=== PATIENT | female | born 1960 | race Caucasian/White ===

== ENCOUNTER → 2017-01-25 09:09 | Outpatient (CLI) | payer BC ==
[2016-07-25 11:06] VITALS: BMI 30.6
[~2017-01-25 09:09] MED LIST: ALBUTEROL2.5 MG/3 M UPD; COLACE100 MG PO; PEPCID20 MG PO; VIBRAMYCIN 100100 MG PO
== END | disposition home or self-care (01) ==
LOC: D.RT 12-25 13:00
DX: J45.909 Unspecified asthma, uncomplicated (principal); J44.9 Chronic obstructive pulmonary disease, unspecified

== ENCOUNTER 2019-01-21 11:46 | Observation (INO) | payer OTHER ==
[~2019-01-21] VITALS: Ht 156.2 cm; Wt 63.5 kg
[2019-01-21] VITALS (7 sets, daily range): BP systolic 103–149; BP diastolic 45–78
[2019-01-21] MEDS ORDERED: VALIUM 2 MG TAB2 MG PO (11:52)
[2019-01-21] MEDS ORDERED: PROZAC40 MG PO (11:53)
[2019-01-21] MEDS ORDERED: TOUJEO (11:53)
[2019-01-21] MEDS ORDERED: NOVOLOG100 UNIT/1 SC (11:53)
[2019-01-21 12:42] LABS: BASOPHILS 0.3 % (0-2); EOSINOPHILS 2.3 % (0-7); HEMATOCRIT 40.7 % (36.0-48.0); HEMOGLOBIN 13.7 g/dL (12-16); IMMATURE GRANULOCYTES 0.4 % (0-5); MCH 30.1 pg (26.0-34.0); MCHC 33.7 g/dL (31.0-37.0); MCV 89.5 fL (80.0-100.0); MEAN PLATELET VOLUME 12.1 fL (7.4-10.4); MONOCYTES 6.6 % (2-11); NEUTROPHILS 57.4 % (40-80); RBC 4.55 10x6/uL (4.00-5.40); RDW 13.1 % (11.5-14.5); WBC 7.3 10x3/uL (4.8-10.8)
[2019-01-21 12:51] LABS: PLATELET COUNT 193 10x3/uL (130-400)
[2019-01-21 12:54] LABS: INR 1.07 (0.85-1.17); PROTIME 13.4 SECONDS (11.6-15.0)
[2019-01-21 13:00] LABS: UDS - AMPHET NEGATIVE QUAL (NEGATIVE); UDS - BARB NEGATIVE QUAL (NEGATIVE); UDS - BENZO NEGATIVE QUAL (NEGATIVE); UDS - COCAINE NEGATIVE QUAL (NEGATIVE); UDS - OPIATE NEGATIVE QUAL (NEGATIVE); UDS - PCP NEGATIVE QUAL (NEGATIVE); UDS - THC NEGATIVE QUAL (NEGATIVE)
[2019-01-21 13:11] LABS: APPEARANCE CLEAR (CLEAR); BACTERIA FEW /hpf (NONE SEEN); BILIRUBIN NEGATIVE (NEGATIVE); COLOR YELLOW (YELLOW); EPITHELIAL CELLS OCC /hpf (0-5); GLUCOSE 1000 mg/dL (NEGATIVE); KETONE NEGATIVE (NEGATIVE); MUCUS <1+ /lpf (NONE SEEN); NITRITE NEGATIVE (NEGATIVE); PROTEIN NEGATIVE (NEGATIVE); SPECIFIC GRAVITY 1.015 (1.005-1.020); UROBILINOGEN NORMAL (NORMAL)
[2019-01-21 13:29] LABS: ALBUMIN 3.2 g/dL (3.4-5.0); ALKALINE PHOSPHATASE 97 U/L (46-116); ALT (SGPT) 41 U/L (10-68); BILIRUBIN - TOTAL 0.35 mg/dL (0.2-1.3); CALC OSMOLALITY 286 mosm/kg (275-300); CALCIUM 8.6 mg/dL (8.5-10.1); CARBON DIOXIDE 29.3 mmol/L (21.0-32.0); CHLORIDE - SERUM 103 mmol/L (98-107); CREATININE - SERUM 0.7 mg/dL (0.6-1.3); GLUCOSE 260 mg/dL (74-106); POTASSIUM - SERUM 3.9 mmol/L (3.5-5.1); PROTEIN - SERUM 7.5 g/dL (6.4-8.2); SODIUM 139 mmol/L (136-145); UREA NITROGEN 12 mg/dL (7-18); eGFR NON AFRICAN AMERICAN > 90 mL/min (90-120)
[2019-01-21 13:41] LABS: CKMB 0.5 U/L (0.0-3.6); CREATINE KINASE 67 UL (21-215); THYROID STIMULATING HORMONE 1.71 uIU/mL (0.36-3.74); TROPONIN-I < 0.017 ng/mL (0.000-0.060)
[2019-01-21 13:52] LABS: KETONE - SERUM NEGATIVE (NEGATIVE)
--- NOTE | 2019-01-21 18:11 | NUR ---
pt held in ED until 1810 due to room needing to be cleaned. Report updated with floor nurse, Stefania
[2019-01-21] MEDS ORDERED: HYDROCHLOROTH12.5 M1 PO (19:52)
--- NOTE | 2019-01-21 21:37 | NUR ---
BS 271, NO S/S COVERAGE AT THIS TIME, PT HAD JUST FINISHED EATING FRUIT.
--- NOTE | 2019-01-22 04:26 | NUR ---
RESTING WITH EYES CLOSED, RESPERATIONS EVEN, NO S/S DISTRESS NOTED.
[2019-01-22 04:30] VITALS: BP 106/42
--- NOTE | 2019-01-22 05:39 | NUR ---
I have reviewed this patient and I concur with the Shift Assessment completed by the Licensed Practical Nurse today this shift.
[2019-01-22 06:20] VITALS: BMI 26.0
--- NOTE | 2019-01-22 07:35 | NUR ---
ASSESSMENT COMPLETED. DENIES ANY NEEDS. ALERT AND ORIENTED. TELEMERTY SHOWS SR 82. UP AB LEONORA.ON ROOM AIR. SR UP WITH CALL LIGHT IN REACH
[2019-01-22 08:43] VITALS: BP 121/84
--- NOTE | 2019-01-22 11:06 | NUR ---
I have reviewed this patient and I concur with the Shift Assessment completed by the Licensed Practical Nurse today this shift.
[2019-01-22 11:40] VITALS: BP 135/75
[2019-01-22 15:38] VITALS: BP 114/54
[2019-01-22 17:10] LABS: LDL-HDL RATIO 2.8 ratio (1.5-3.5)
[2019-01-22 20:00] VITALS: BP 139/67
[2019-01-23] VITALS: BP 141/66
--- NOTE | 2019-01-23 01:07 | NUR ---
I have reviewed this patient and I concur with the Shift Assessment completed by the Licensed Practical Nurse today this shift.
[2019-01-23 04:30] VITALS: BP 124/48
--- NOTE | 2019-01-23 07:40 | NUR ---
ASSESSMENT CCOMPLETED. ALERT AND ORIENTED. DENIES ANY NEEDS. TELEMERTY SHOWS SR. RIGHT HAND SL. UP AB LEONORA. WILL MONITOR
[2019-01-23 08:24] LABS: BASOPHILS 0.3 % (0-2); EOSINOPHILS 4.3 % (0-7); HEMATOCRIT 38.5 % (36.0-48.0); IMMATURE GRANULOCYTES 0.3 % (0-5); LYMPHOCYTES 37.7 % (15-50); MCH 30.1 pg (26.0-34.0); MCHC 33.8 g/dL (31.0-37.0); MCV 89.1 fL (80.0-100.0); MEAN PLATELET VOLUME 11.7 fL (7.4-10.4); MONOCYTES 8.2 % (2-11); NEUTROPHILS 49.2 % (40-80); PLATELET COUNT 185 10x3/uL (130-400); RBC 4.32 10x6/uL (4.00-5.40); RDW 12.9 % (11.5-14.5); WBC 5.8 10x3/uL (4.8-10.8)
[2019-01-23 08:30] VITALS: BP 129/65
[2019-01-23 08:41] LABS: CALC OSMOLALITY 279 mosm/kg (275-300); CALCIUM 8.6 mg/dL (8.5-10.1); CARBON DIOXIDE 29.1 mmol/L (21.0-32.0); CHLORIDE - SERUM 103 mmol/L (98-107); CREATININE - SERUM 0.7 mg/dL (0.6-1.3); POTASSIUM - SERUM 3.4 mmol/L (3.5-5.1); SODIUM 139 mmol/L (136-145); UREA NITROGEN 14 mg/dL (7-18); eGFR NON AFRICAN AMERICAN > 90 mL/min (90-120)
[2019-01-23 08:43] LABS: GLUCOSE 109 mg/dL (74-106)
[2019-01-23 12:30] VITALS: BP 124/68
[2019-01-23 14:00] VITALS: Ht 156.2 cm; Wt 63.5 kg
--- NOTE | 2019-01-23 15:21 | NUR ---
LYING QUIETLY. DENIES ANY NEEDS. WILL MONITOR
[2019-01-23] MEDS ORDERED: PRAVACHOL20 MG PO (16:05)
[2019-01-23] MEDS ORDERED: ECOTRIN325 MG PO (16:42)
--- NOTE | 2019-01-23 17:56 | NUR ---
PT DISCHARGED. IV DCD WITH TIP INTACT. TO PRIVATE CAR PER WHEEL CHAIR
--- NOTE | 2019-01-24 13:53 | MORECARE ---
CASE MANAGEMENT DISCHARGE SUMMARY PATIENT: JEAN-CLAUDE VENTURA UNIT: [id number] ADM DATE: 01/21/19 AGE: 59 : 60 SEX: F ROOM/BED: D.4576 AUTHOR: KASSI PARIKH PHYSICIAN: REFERRING PHYSICIAN: SHANIA CARY MD DATE OF SERVICE: 01/24/19 Discharge Plan Patient Name: JEAN-CLAUDE VENTURA Facility: [facility]:[place] : 1960 Planned Disposition: Anticipated Discharge Date: Discharge Date: 01/23/2019 Expected LOS: Initial Reviewer: [email or web address] Initial Review Date: 01/21/2019 Generated: 01/24/19 2:52 pm Patient Name: JEAN-CLAUDE VENTURA Page [id number] at 1353 All edits/amendments must be made on the electronic document DICTATION DATE: 01/24/19 1352 SENIOR CLINICIAN: [email or web address] 01/24/19 1352 RPT#: [id number] DC DATE:01/23/19 STATUS: DIS IN [address] [place] [address] END OF REPORT
== END 2019-01-23 17:59 | disposition home or self-care (01) ==
LOC: D.ER 11:46 → D.M2 15:21 → OBSVTIME 15:21 → D.M2 15:21
PROVIDERS: Family Medicine; ADMIT Internal Medicine Nephrology; ATTEND Internal Medicine Nephrology
DX: R55 Syncope and collapse (principal); R07.89 Other chest pain; R00.0 Tachycardia, unspecified; E11.9 Type 2 diabetes mellitus without complications; M32.9 Systemic lupus erythematosus, unspecified; G40.909 Epilepsy, unspecified, not intractable, without status epilepticus